=== PATIENT | female | born 1990 | race Caucasian/White ===

== ENCOUNTER 2017-05-15 01:30 | Emergency (ER) | payer MEDICAID ==
[~2017-05-15] VITALS: Ht 165.1 cm; Wt 90.7 kg
[2017-05-15 01:45] VITALS: BP 104/57
[2017-05-15] MEDS ORDERED: cefTRIAXone SOD 1,000 MG VL IM ONE (04:30)
== END 2017-05-15 05:37 | disposition home or self-care (01) ==
LOC: ER 01:30
DX: J06.9 Acute upper respiratory infection, unspecified (principal); J02.9 Acute pharyngitis, unspecified; R13.10 Dysphagia, unspecified; Z82.49 Family history of ischemic heart disease and other diseases of the circulatory system
CPT/HCPCS: 87804; 99284; J0696; 87400

== ENCOUNTER 2021-07-06 22:25 | Inpatient (IN) | payer MEDICAID ==
[~2021-07-06] VITALS: Ht 165.1 cm; Wt 99.6 kg
[2021-07-06] MEDS ORDERED: SODIUM CHLORIDE 0.9% 1,000 ML IV ONE (23:15)
[2021-07-06] MEDS ORDERED: ONDANSETRON HCL 4 MG/2 ML VIAL IV ONE (23:15)
[2021-07-06] MEDS ORDERED: HYDROmorphone HCL 2 MG/ML VL IV ONE (23:15)
[2021-07-07 00:08] LABS: Basophils # (auto) 0.1 10 ^3/uL (0-0.2); Basophils % (auto) 0.6 % (0.0-2.0); Eosinophils # (auto) 0.2 10 ^3/uL (0-0.8); Eosinophils % (auto) 2.2 % (0.0-7.0); Hematocrit 37.7 % (36.0-46.0); Hemoglobin 13.2 g/dL (12.2-16.2); Lymphocytes # (auto) 2.9 10 ^3/uL (0.4-5.4); Lymphocytes % (auto) 30.2 % (10.0-50.0); Mean Corpuscular Hemoglobin 31.9 pg (28.0-32.0); Mean Corpuscular Hgb Conc. 34.9 g/dL (32.0-36.0); Mean Corpuscular Volume 91.5 fL (80.0-100.0); Monocytes # (auto) 0.7 10 ^3/uL (0-1.3); Monocytes % (auto) 7.1 % (0.0-12.0); Neutrophils # (auto) 5.8 10 ^3/uL (1.6-8.6); Neutrophils % (auto) 59.9 % (37.0-80.0); Nucleated Red Blood Cells % 0.1 %; Red Blood Cells 4.12 10^6/uL (4.0-5.20); Red Cell Distribution Width 12.4 % (11.8-14.3); White Blood Cell 9.7 10^3/uL (4.4-10.8)
[2021-07-07 00:26] LABS: Calcium 8.3 mg/dL (8.5-10.1); Chloride 106 mmol/L (98-107); Potassium 3.6 mmol/L (3.5-5.1); Sodium 137 mmol/L (136-145)
[2021-07-07 00:34] LABS: Alanine Aminotransferase 17 U/L (13-56); Albumin 3.7 g/dL (3.4-5.0); Alkaline Phosphatase 77 U/L (45-117); Anion Gap 5 (5-15); Aspartate Aminotransferase 15 U/L (15-37); BUN/Creatinine Ratio 9.7; Bilirubin, Total 0.7 mg/dL (0.2-1.0); Blood Urea Nitrogen 9 mg/dL (7-18); Carbon Dioxide 26 mmol/L (21-32); GFR African American 92 mL/min; GFR Non-African American 76 mL/min; Glucose 85 mg/dL (74-106); Lipase 113 U/L (73-393); Total Protein 7.3 g/dL (6.4-8.2)
[2021-07-07] MEDS ORDERED: IOHEXOL 300 MG/ML 100ML BOTTLE IJ ONE (01:05)
[2021-07-07] MEDS ORDERED: KETOROLAC TROMETH 30 MG/ML 1ML VIAL IV ONE (05:00)
[2021-07-07] MEDS ORDERED: NITROGLYCERIN 0.4 MG SL TAB SL PRN ×2 (05:30)
[2021-07-07] MEDS ORDERED: SODIUM CHLORIDE 0.9% 1,000 ML IV SCH (05:30)
[2021-07-07] MEDS ORDERED: MORPHINE SULFATE INJECTION 2 MG/ML SYRG IV PRN ×2 (05:30)
[2021-07-07 06:24] LABS: Basophils # (auto) 0.1 10 ^3/uL (0-0.2); Basophils % (auto) 0.8 % (0.0-2.0); Eosinophils # (auto) 0.2 10 ^3/uL (0-0.8); Eosinophils % (auto) 3.4 % (0.0-7.0); Hematocrit 37.5 % (36.0-46.0); Hemoglobin 13.1 g/dL (12.2-16.2); Lymphocytes # (auto) 2.9 10 ^3/uL (0.4-5.4); Mean Corpuscular Hemoglobin 32.8 pg (28.0-32.0); Mean Corpuscular Volume 93.5 fL (80.0-100.0); Monocytes # (auto) 0.4 10 ^3/uL (0-1.3); Monocytes % (auto) 5.3 % (0.0-12.0); Neutrophils # (auto) 3.5 10 ^3/uL (1.6-8.6); Neutrophils % (auto) 49.5 % (37.0-80.0); Nucleated Red Blood Cells % 0.2 %; Red Blood Cells 4.01 10^6/uL (4.0-5.20); Red Cell Distribution Width 12.6 % (11.8-14.3)
[2021-07-07 06:45] LABS: Albumin 3.1 g/dL (3.4-5.0); BUN/Creatinine Ratio 8.9; Calcium 8.1 mg/dL (8.5-10.1); Potassium 3.6 mmol/L (3.5-5.1)
[2021-07-07 06:48] LABS: Bilirubin, Total 0.4 mg/dL (0.2-1.0); Total Protein 6.1 g/dL (6.4-8.2)
[2021-07-07 06:54] LABS: INR 1.05 (0.9-1.15)
[2021-07-07] MEDS: ENOXAPARIN SOD 40 MG/0.4 ML SYRINGE SC SCH (10:39)
[2021-07-07] MEDS ORDERED: OXYCODONE W/ ACETAMINOPHEN 5/325MG TABLET PO PRN ×2 (11:45)
[2021-07-07 12:56] VITALS: BP 94/44
[2021-07-07 13:00] VITALS: BP 94/44
[2021-07-07] MEDS: IBUPROFEN 400 MG TAB PO PRN (16:44)
[2021-07-07 17:00] VITALS: BP 108/60
[2021-07-07 22:00] VITALS: BP 97/56
[2021-07-08 05:00] VITALS: BP 90/42
[2021-07-08] MEDS: IBUPROFEN 400 MG TAB PO PRN ×2 (05:28→14:33)
[2021-07-08 09:00] VITALS: BP 91/44
[2021-07-08] MEDS: ENOXAPARIN SOD 40 MG/0.4 ML SYRINGE SC SCH (09:22)
[2021-07-08] MEDS ORDERED: cefTRIAXone 1GM/50ML D5W 50 ML IV ONE (10:00)
[2021-07-08] MEDS ORDERED: SODIUM CHLORIDE 0.9% 1,000 ML IV ONE ×2 (10:00)
[2021-07-08] MEDS: ONDANSETRON HCL 4 MG/2 ML VIAL IV PRN ×2 (10:49→17:10)
[2021-07-08] MEDS: traMADol HCL 50 MG TAB PO PRN ×2 (10:49→17:10)
[2021-07-08 13:00] VITALS: BP 100/46
[2021-07-08 17:00] VITALS: BP 100/58
[2021-07-08 22:00] VITALS: BP 103/59
[2021-07-08] MEDS: TEMAZEPAM 15 MG CAP PO PRN (22:24)
[2021-07-09 05:00] VITALS: BP 78/38
[2021-07-09] MEDS ORDERED: SODIUM CHLORIDE 0.9% 500 ML IV ONE (05:45)
[2021-07-09 06:52] VITALS: BP 88/52
[2021-07-09 09:00] VITALS: BP 97/59
[2021-07-09 09:07] LABS: Partial Thromboplastin Time 26.9 sec (23.6-33.0)
[2021-07-09] MEDS: ENOXAPARIN SOD 40 MG/0.4 ML SYRINGE SC SCH (09:13)
[2021-07-09] MEDS: cefTRIAXone 1GM/50ML D5W 50 ML IV SCH (09:13)
[2021-07-09 13:00] VITALS: BP 105/64
[2021-07-09] MEDS ORDERED: CEPH-322 PO (15:24)
[2021-07-09] MEDS ORDERED: IBUP400T23 PO (15:24)
[2021-07-09 17:00] VITALS: BP 93/50
[2021-07-09] MEDS ORDERED: IBUPROFEN 800 MG TAB PO PRN (18:00)
[2021-07-09] MEDS: TEMAZEPAM 15 MG CAP PO PRN (21:07)
[2021-07-09 22:00] VITALS: BP 106/59
[2021-07-10 05:00] VITALS: BP_SYST 107; BP_SYST 119; BP_SYST 97; BP_DIAS 51; BP_DIAS 53; BP_DIAS 59
[2021-07-10 05:39] LABS: Alcohol, Urine < 3.0 mg/dL (0-10); Amphetamine Screen, Urine NEGATIVE (NEGATIVE); Barbiturate Scree,Urine NEGATIVE (NEGATIVE); Benzodiazephine Screen, Urine NEGATIVE (NEGATIVE); Cannabinoid Screen, Urine NEGATIVE (NEGATIVE); Cocaine Screen, Urine NEGATIVE (NEGATIVE); Opiate Scree,Urine NEGATIVE (NEGATIVE); Phencyclidine Screen, Urine NEGATIVE (NEGATIVE)
[2021-07-10 09:00] VITALS: BP 97/56
[2021-07-10 10:11] VITALS: BP 119/72
[2021-07-10] MEDS: cefTRIAXone 1GM/50ML D5W 50 ML IV SCH (10:57)
[2021-07-10] MEDS: ENOXAPARIN SOD 40 MG/0.4 ML SYRINGE SC SCH (11:02)
[2021-07-10 12:54] VITALS: BP_SYST 100; BP_SYST 110; BP_DIAS 51; BP_DIAS 56
[2021-07-10 13:55] VITALS: BP 100/56
== END 2021-07-10 15:28 | disposition home or self-care (01) | DRG 385 ==
LOC: ER 22:28 → TELE 07-07 05:24 → TELE-WESTW 07-07 11:55
PROVIDERS: ADMIT Internal Medicine; ATTEND Internal Medicine
DX: N61.0 Mastitis without abscess (principal); I95.9 Hypotension, unspecified; E66.9 Obesity, unspecified; N60.02 Solitary cyst of left breast; N64.4 Mastodynia; F32.A Depression, unspecified; Z20.822 Contact with and (suspected) exposure to COVID-19; F41.9 Anxiety disorder, unspecified; F17.200 Nicotine dependence, unspecified, uncomplicated; R00.1 Bradycardia, unspecified; R42 Dizziness and giddiness; R59.0 Localized enlarged lymph nodes; Z68.36 Body mass index [BMI] 36.0-36.9, adult; Z80.41 Family history of malignant neoplasm of ovary; Z90.49 Acquired absence of other specified parts of digestive tract; Z85.3 Personal history of malignant neoplasm of breast
CPT/HCPCS: 36415; 71260; 76642; 80053; 80307; 83036; 83615; 83690; 83735; 84443; 84484; 85025; 85610; 85730; 86300; 87426; 93017; 93306; 96361; 96372; 96374; 96375; G0378; J0696; J1885; J2405